=== PATIENT | male | born 1985 | race Hispanic/Latino ===

== ENCOUNTER 2024-12-20 08:22 | Emergency (ER) | payer SELFPAY ==
[2024-12-20 08:25] VITALS: BP 137/78; PULSE 67; RESP 14; TEMP 36.2; O2SAT 100
--- NOTE | 2024-12-20 08:31 | ED_ITS ---
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 Patient has not tried any medications. Denies any congestion, sore throat, cough, fever, chills, nausea, vomiting, diarrhea. MD Complaint: ear pain Related Data Allergies Allergy/AdvReac Type Severity Reaction Status Date / Time No Known Allergies Allergy Verified 12/20/24 08:29 Review of Systems Review of Systems: All systems reviewed & are unremarkable except as noted in HPI and below Constitutional: Constitutional: Denies body ache(s), Denies chills, Denies fever(s), Denies headache(s) and Denies malaise Eyes: Eyes: Denies blurry vision, Denies eye discharge and Denies irritation ENT: Reports otalgia, Denies headache(s), Denies nasal congestion, Denies nasal discharge and Denies sore throat Cardiovascular: Cardiovascular: Denies chest pain, Denies edema, Denies palpitations and Denies dyspnea on exertion Respiratory: Respiratory: Denies cough and Denies dyspnea on exertion Gastrointestinal: Gastrointestinal: Denies abdominal pain, Denies diarrhea, Denies nausea and Denies vomiting Musculoskeletal: Musculoskeletal: Denies back pain, Denies arthralgias and Denies muscle weakness Integumentary/Breasts: Skin/Breast: Denies pruritus and Denies rash Neurologic: Denies headache(s) Psychiatric: Psychiatric: Reports no additional psychiatric complaints Endocrine: Endocrine: Denies palpitations PMFSH Comments At time of signature, agree with nursing past medical, surgical, social and family history. There is no relevant family history pertinent to the presenting complaint? Exam Const: General: cooperative, healthy appearing, no acute distress and well nourished Nutritional Appearance: well nourished Orientation/consciousness: patient oriented x3 Limitations: no limitations HENMT: Head: normal to inspection, normocephalic and atraumatic Ears: hearing grossly normal bilaterally, no periauricular adenopathy, Abnormal EAC present erythema bilateral, edema bilateral and EAC tenderness bilateral; no foreign body and no otic discharge and TM abnormal bulging bilateral and erythematous bilateral Face/Nose/Sinus: Normal external nose present, Normal nares present, Normal nasal mucous membranes and turbinates present, No nasal discharge present, normal facial exam and sinuses nontender Face and sinus: normal facial exam and sinuses nontender Mouth: Yes Normal oral and palatal mucosa present, Yes lip normal, Yes tongue normal and Yes moist mucous membranes Throat: posterior oropharynx normal, tonsils normal and uvula midline Eyes: General: appearance normal, both eyes and all related structures Alignment and Position: alignment normal and position normal Eyelids: eyelids normal Pupils: Equal, round and reactive pupils present EOM: EOMs intact bilaterally Neck: Neck: normal visual inspection, full ROM, no lymphadenopathy and supple Chest: Chest palpation & inspection: normal inspection of the chest Resp: Effort & Inspection: normal respiratory effort and able to speak in complete sentences Auscultation: clear to auscultation bilaterally, no crackles, no rales, no rhonchi and no wheezes Cardio: Rate: regular rate Rhythm: regular rhythm Heart sounds: S1 normal heart sound present and S2 normal heart sound present Skin: General skin exam: normal color and no rashes or lesions noted Neuro: General: patient oriented x3 and moves all extremities Cranial nerves: Yes Equal, round and reactive pupils present Cognition (Neuro): normal cognition Speech: normal speech Gait exam (Neuro): Normal gait present Extrem: General: normal to inspection and full ROM Psych: Appearance: grossly normal and well kempt Mental Status: mental status grossly normal Speech and movement: Normal speech and movement present Course Course Emergency Course: Patient is aware of diagnosis, understands and agrees to treatment plan.? Anticipatory guidance given.? Patient agrees to follow-up as directed and is aware of reasons to seek care at the emergency department.? Portions of this record may have been created with voice recognition software? Level of Care: Express Care Visit Vital Signs Vital signs: Reviewed Medical Decision Making MDM Narrative Medical decision making narrative: Pt well hydrated appearing, in no respiratory distress, hemodynamically stable. Recommend supportive care. The patient is stable at time of discharge the clinical impression was discussed and the patient was given the opportunity to ask questions, which were addressed as completely as possible given the informat ion available at present. Anticipatory guidance and return to care precautions were discussed and the importance of primary care follow-up was stressed and encouraged. The patient voiced understanding of the plan, indications to return, and the need for follow-up. Exam findings show no acute concerns or changes Patient is appropriate for outpatient treatment and follow-up. Differential diagnosis considered: [place] virus, strep pharyngitis, allergic rhinitis, upper respiratory tract infection, sinusitis, rhinosinusitis, nasopharyngitis. viral pharyngitis, otitis media, otitis externa, otitis effusion, foreign body, cerumen impaction, viral syndrome, and influenza.? Discharge Plan Discharge Clinical Impression: Otitis externa Qualifiers: Otitis externa type: unspecified type Chronicity: acute Laterality: bilateral Qualified Code(s): H60.503 - Unspecified acute noninfective otitis externa, bilateral Otitis media Qualifiers: Otitis media type: suppurative Chronicity: acute Laterality: bilateral Recurrence: non-recurrent Spontaneous tympanic membrane rupture: without spontaneous rupture Qualified Code(s): H66.003 - Acute suppurative otitis media without spontaneous rupture of ear drum, bilateral Patient Disposition: Home Condition: Stable Instructions: Ear Infection (GEN) Additional Instructions: Gotas ?cl seg?n las indicaciones johnny 7 a 10 d?as hasta que el dolor y la inflamaci?n desaparezcan. Coloque 2 gotas en cada ketan cada 2-4 horas x 2 d?as, luego 2 gotas 4 veces al d?a los d?as 3-7 Al administrar el medicamento en el o?do afectado, aseg?rese de acostarse con el o?do afectado hacia arriba, masajee el canal auditivo para que las gotas lleguen al extremo medial y permanezca en sean posici?n johnny al menos 5 minutos. Evite usar hisopos para limpiar los o?dos. Evite nadar o exponer el o?do afectado al agua johnny el tratamiento. [place] o alterne Tylenol o ibuprofeno cada 4 a 6 horas si es necesario para el dolor. Consulte con otoole m?dico de cabecera si la afecci?n no mejora en 7 d?as o antes si surge alguna nueva inquietud. [place] antibi?ticos seg?n las indicaciones. Recomiende antihistam?nicos maisha Benadryl por la noche y Zyrtec o Uma johnny el d?a hasta que los s?ntomas mejoren. Aerosol nasal Flonase: 1 aplicaci?n en cada fosa nasal brady vez al d?a hasta que los s?ntomas mejoren. Tambi?n se recomienda el tratamiento sintom?riaz, que incluye reposo, l?quidos y aumento de la humedad del aire en casa. Recomiende acetaminof?n seg?n las indicaciones del envase para reducir la fiebre y el dolor. Programe brady visita de seguimiento con otoole m?dico de cabecera para brady evaluaci?n y tratamiento adicionales dentro de 3 a 5 d?as. Si cali s?ntomas persisten, camb[place] o empeoran significativamente antes de poder contactar a otoole m?dico de cabecera, acuda de inmediato a urgencias para brady evaluaci?n adicional. Patient Language: Swedish Prescriptions: New ofloxacin 0.3 % drops See Rx Instructions .ROUTE .COMPLEX Qty: 15 0RF Rx Instructions: put 2 drps into each eye every 2-4 h x 2 days, then 2 drps 4 times/day days 3-7 amoxicillin 875 mg tablet 875 mg PO Q12H 7 Days Qty: 14 0RF Follow-up/Referrals: Baljinder Valentin MD [Physician] - 3 Days ([facility] care) Time of Disposition: 08:40
[2024-12-20 08:43] LABS: Glucose Point of Care 186 mg/dl (65-105)
== END 2024-12-20 08:44 | disposition home or self-care (01) ==
PROVIDERS: Emergency Provider Nurse Practitioner Family
DX: H60.503 Unspecified acute noninfective otitis externa, bilateral (principal); H66.003 Acute suppurative otitis media without spontaneous rupture of ear drum, bilateral; E11.9 Type 2 diabetes mellitus without complications
CPT/HCPCS: 82948; 99203; G0463

== ENCOUNTER 2025-04-23 09:42 | Emergency (ER) | payer SELFPAY ==
[2025-04-23 09:51] VITALS: BP 119/73; PULSE 65; RESP 16; TEMP 36.2; O2SAT 100
--- NOTE | 2025-04-23 11:50 | ED.EAR ---
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 Hearing normal. No drainage. No URI symptoms. No OTC treatment prior to arrival. Related Data Home Medications ?Medication ?Instructions ?Recorded ?Confirmed ?Last Taken ?Type metformin 500 mg tablet 500 mg PO BID 04/23/25 04/23/25 Unknown History Allergies Allergy/AdvReac Type Severity Reaction Status Date / Time No Known Allergies Allergy Verified 04/23/25 10:01 [facility] Past Medical History Medical History (Updated 04/23/25 @ 11:51 by Emperatriz Maynard, [facility], ) Diabetes Comments At time of signature, I have reviewed and agree with nursing past medical, surgical, social and family history unless otherwise noted. Please see nursing chart for further information. There is no relevant family history pertinent to the presenting complaint Exam Narrative: GENERAL: Well-appearing, well-nourished, and in no acute distress. HEAD: Normocephalic, atraumatic. EYES: EOMI. No redness or drainage. Conjunctivae normal. ENT: Mucous membranes pink and moist. Nares clear. No rhinorrhea. Bilateral external ears are covered in white, scaly plaques on a slightly erythematous base. On the right, this extends into the ear canal, causing the canal to be slightly swollen with plaque material in the canal. NECK: Normal AROM. CHEST: No respiratory distress. EXTREMITIES: Normal range of motion. No edema. SKIN: Warm, dry, no rash. Capillary refill normal. Normal skin turgor. NEURO: No focal deficits. Alert and oriented x3. Gait steady. PSYCH: Normal affect. No signs of depression or anxiety. Course Course Level of Care: Express Care Visit Vital Signs Vital signs: Vital Signs Temperature 97.2 F L 04/23/25 09:51 Pulse Rate 65 04/23/25 09:51 Respiratory Rate 16 04/23/25 09:51 Blood Pressure 119/73 04/23/25 09:51 Pulse Oximetry 100 04/23/25 09:51 Oxygen Delivery Room Air 04/23/25 09:51 Temperature 97.2 F L 04/23/25 09:51 Pulse Rate 65 04/23/25 09:51 Respiratory Rate 16 04/23/25 09:51 Blood Pressure 119/73 04/23/25 09:51 Pulse Oximetry 100 04/23/25 09:51 Oxygen Delivery Room Air 04/23/25 09:51 Reviewed Medical Decision Making MDM Narrative Medical decision making narrative: A 39-year-old male patient with history of diabetes, presents today complaining of a one-month history of pain and itching in the bilateral ears. Hearing normal. No drainage. No URI symptoms. No OTC treatment prior to arrival. Upon exam, Bilateral external ears are covered in white, scaly plaques on a slightly erythematous base. On the right, this extends into the ear canal, causing the canal to be slightly swollen with plaque material in the canal. Rash is consistent with seborrheic dermatitis. Prescription for 2% ketoconazole cream sent to pharmacy. Recommend PCP follow-up in 2 weeks if symptoms are not improving. Patient agrees with plan. Vital signs stable. Anticipatory guidance given. Differential Diagnosis Differential Diagnosis: Otitis media, otitis externa, serous otitis, eczema, seborrheic dermatitis Vital Signs Vital Signs: Vital Signs Temperature 97.2 F L 04/23/25 09:51 Pulse Rate 65 04/23/25 09:51 Respiratory Rate 16 04/23/25 09:51 Blood Pressure 119/73 04/23/25 09:51 Pulse Oximetry 100 04/23/25 09:51 Oxygen Delivery Room Air 04/23/25 09:51 Temperature 97.2 F L 04/23/25 09:51 Pulse Rate 65 04/23/25 09:51 Respiratory Rate 16 04/23/25 09:51 Blood Pressure 119/73 04/23/25 09:51 Pulse Oximetry 100 04/23/25 09:51 Oxygen Delivery Room Air 04/23/25 09:51 Lab Data Labs: Lab Results 04/23/25 Range/Units 10:08 POC Capillary Glucose 157 H (65-105) mg/dl Critical Care Time Critical Care Time Critical Care Time: No Discharge Plan Discharge Clinical Impression: Seborrheic dermatitis Patient Disposition: Home Condition: Stable Additional Instructions: [place] montes de oca diagnosticado dermatitis seborreica en los o?dos. Aplique la crema dos veces al d?a, seg?n lo prescrito, johnny al menos dos semanas. Consulte con otoole m?dico en dos semanas si los s?ntomas no mejoran. You have been diagnosed with sebhorreic dermatitis on your ears. Please put the cream on your ears twice daily as prescribed for at least 2 weeks. Follow up with your doctor in 2 weeks if symptoms are not improving. 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
== END 2025-04-23 10:19 | disposition home or self-care (01) ==
PROVIDERS: Emergency Provider Nurse Practitioner
DX: L21.9 Seborrheic dermatitis, unspecified (principal); E11.9 Type 2 diabetes mellitus without complications; Z79.84 Long term (current) use of oral hypoglycemic drugs
CPT/HCPCS: 82948; 99213; G0463